=== PATIENT | male | born 1990 | race Two or more races ===

== ENCOUNTER 2024-12-01 12:19 | Emergency (ER) | payer MEDICAID ==
[~2024-12-01] VITALS: Ht 172.7 cm; Wt 86.2 kg
[2024-12-01] MEDS: LIDOCAINE HCL/PF 1% 30 ML VIAL IM ONE (13:54)
[2024-12-01] MEDS ORDERED: TDAP [DIPH/PERTUSSIS/TET] 0.5 ML VIAL IM ONE (14:19)
[2024-12-01] MEDS ORDERED: BACI/NEOM/POLY B OINT PKT 1 UDPKT PACKET ONE (14:19)
[2024-12-01] MEDS: BACI/NEOM/POLY B OINT PKT 1 UDPKT PACKET TP ONE (14:23)
[2024-12-01] MEDS: TDAP [DIPH/PERTUSSIS/TET] 0.5 ML VIAL IM ONE (14:24)
[2024-12-01 14:26] VITALS: BP 130/76; TEMP 98.6; O2SAT 99
== END 2024-12-01 14:29 | disposition home or self-care (01) ==
LOC: ER 12:36
DX: S71.111A Laceration without foreign body, right thigh, initial encounter (principal); Z88.7 Allergy status to serum and vaccine; W26.8XXA Contact with other sharp object(s), not elsewhere classified, initial encounter; Y93.89 Activity, other specified; Y92.098 Other place in other non-institutional residence as the place of occurrence of the external cause; Y99.8 Other external cause status; Z60.2 Problems related to living alone
CPT/HCPCS: 12002; 90471; 90715; 99283; J3490